=== PATIENT | female | born 1990 | race Caucasian/White ===

== ENCOUNTER 2017-08-30 20:21 | Emergency (ER) | payer OTHER, MEDICAID ==
[~2017-08-30] VITALS: Ht 162.6 cm; Wt 65.3 kg
[~2017-08-30 20:21] MED LIST: DICLOXACILLIN250 M2 OR; IBUPROFEN 800800 MG PO; ZOLOFT25 MG PO
[2017-08-30] MEDS ORDERED: PRENATAL PO (20:33)
[2017-08-30] MEDS ORDERED: SYNTHROID125 MC1 PO (20:33)
[2017-08-30 22:05] LABS: ABSOLUTE BASOPHILS 0.1 thou/uL (0.0-0.2); ABSOLUTE EOSINOPHILS 0.1 thou/uL (0.0-0.7); ABSOLUTE LYMPHOCYTES 3.2 thou/uL (0.8-5.3); ABSOLUTE NEUTROPHILS 6.3 thou/uL (1.6-8.1); BASOPHILS 0.9 %; EOSINOPHILS 1.1 %; HEMATOCRIT 34.9 % (37.0-47.0); HEMOGLOBIN 12.1 gm/dL (12.0-15.0); LYMPHOCYTES 29.6 %; MCH 29.7 pg (26.0-34.0); MCHC 34.8 g/dL (28.0-37.0); MCV 85.3 fL (80.0-100.0); MONOCYTES 9.2 %; MPV 8.7 fl. (7.2-11.1); NUCLEATED RBCS 0 /100WBC; PLATELET COUNT* 223 thou/uL (150-400); POLYS 59.2 %; RBC 4.09 mil/uL (4.20-5.00); RDW-CV 12.9 % (10.5-14.5); WBC 10.7 thou/uL (4.0-11.0)
[2017-08-30 22:05] LABS: URINE BILIRUBIN NEGATIVE (Negative); URINE BLOOD NEGATIVE (Negative); URINE CLARITY CLEAR; URINE COLOR YELLOW; URINE GLUCOSE-RANDOM NEGATIVE (Negative); URINE KETONES NEGATIVE (Negative); URINE LEUKOCYTES NEGATIVE (Negative); URINE NITRITE NEGATIVE (Negative); URINE PROTEIN NEGATIVE (Negative); URINE SPECIFIC GRAVITY 1.015 (1.005-1.030)
[2017-08-30 22:16] LABS: CALCIUM 8.8 mg/dL (8.5-10.1); CREATININE 0.6 mg/dL (0.6-1.3); POTASSIUM 3.6 mmol/L (3.5-5.1)
[2017-08-30 22:21] LABS: ALBUMIN 3.2 g/dL (3.4-5.0); TOTAL BILIRUBIN 0.2 mg/dL (<0.1-1.0); TOTAL PROTEIN 6.8 g/dL (6.4-8.2)
[2017-08-31 00:39] VITALS: BP 95/62
--- NOTE | 2017-08-31 11:03 | EKG ---
[place] [address] ELECTROCARDIOGRAM REPORT Name: JOANA SALVADOR Room: [facility]#: [id number] Admission: 08/30/17 Attend Phys: Discharge: 08/31/17 Date of : 89 Report #: [id number] THIS REPORT FOR: //name// [facility] ED Test Date: 2017-08-30 Test Time: 21:54:29 Pat Name: JOANA SALVADOR Department: Room: Gender: F [employer] Processing Technician: ALINE Warner : 1990 Requested By: Brittany Montano Order Number: [id number] MD: Ryan Padron Measurements Intervals [place] Rate: 57 P: 43 UT: 152 QRS: 42 QRSD: 106 T: 31 QT: 423 QTc: 412 Interpretive Statements Sinus rhythm RSR' in V1 or V2, probably normal variant No previous ECG available for comparison Electronically Signed On 08-31-2017 11:03:30 CDT by Ryan Padron [email or web address] <ELECTRONICALLY SIGNED> By: Ryan Padron MD, [facility] 08/31/17 1103 2154 2154 Ryan Padron MD, FAC /EPI
== END 2017-08-31 00:40 | disposition home or self-care (01) ==
LOC: M.ERS 20:21
PROVIDERS: Physician Assistant
DX: O26.891 Other specified pregnancy related conditions, first trimester (principal); R10.9 Unspecified abdominal pain; Z3A.11 11 weeks gestation of pregnancy; Z88.8 Allergy status to other drugs, medicaments and biological substances